=== PATIENT | male | born 1955 | race Caucasian/White ===

== ENCOUNTER 2017-08-21 05:25 | Inpatient (IN) ==
[2017-08-21] MEDS ORDERED: CEFAZOLIN 1 G INJECTION IVP ONE ×2 (05:29→05:47)
[2017-08-21 05:48] VITALS: BMI 25.8
[2017-08-21] MEDS ORDERED: FAMOTIDINE PB 20 MG/50 ML BAG IV ONE (06:00)
[2017-08-21] MEDS ORDERED: CELECOXIB 200 MG CAPSULE PO ONE (06:00)
[2017-08-21] MEDS ORDERED: METOCLOPRAMIDE 10mg/2ml INJECTION IVP ONE (06:00)
[2017-08-21] MEDS ORDERED: DEXAMETHASONE 4 MG/ML INJECTION IVP ONE (06:00)
[2017-08-21] MEDS ORDERED: ACETAMINOPHEN 500 MG TABLET PO ONE (06:00)
[2017-08-21] MEDS ORDERED: LIDOCAINE 1% (10mg/ml) 2mL INJ PF SDV ID ONE (06:00)
[2017-08-21] MEDS ORDERED: ONDANSETRON 4 MG/2 ML INJECTION IVP ONE (06:00)
[2017-08-21] MEDS ORDERED: TRANEXAMIC ACID 1,000 MG in NS 100 ML IV ONE ×2 (06:00→07:00)
[2017-08-21] MEDS: LR 1,000 ML IV SCH ×2 (06:05→08:23)
[2017-08-21] MEDS: NOZIN NASAL SWAB NAS SCH ×5 (06:08→21:31)
--- NOTE | 2017-08-21 06:43 | Anesthesia Preoperative Report ---
Anesthesia Preoperative Record - Date and Time Date: 08/21/17 Preoperative Diagnosis: Robotic Total Hip M16.12 Proposed Procedure: Left Total Hip NPO Since Date: 08/21/17 NPO Since Time: 00:00 Allergies/Adverse Reactions: Allergies Allergy/AdvReac Type Severity Reaction Status Date / Time No Known Allergies Allergy Verified 08/21/17 05:55 - Vital Signs Vital Signs: Temperature 98.5 F 08/21/17 05:45 Pulse Rate 75 08/21/17 05:55 Respiratory Rate 14 08/21/17 05:45 Blood Pressure 130/67 08/21/17 05:45 Pulse Oximetry 98 08/21/17 05:45 Height and Weight: Height 1.69 m Weight 73.8 kg Body Mass Index 25.8 - Medications Inpatient Medications: Current Medications Epinephrine HCl 0.25 mg/Bupivacaine HCl 30 ml/Ketorolac Tromethamine 60 mg/ Sodium Chloride 62.25 mls @ 0 mls/hr OPSITE INTRAOP ONE; Protocol Stop: 08/21/17 08:01 Tranexamic Acid 1,000 mg/ (Sodium Chloride) 110 mls @ 660 mls/hr IV INTRAOP ONE Stop: 08/21/17 07:09 Lactated Ringer's (Lactated Ringers) 1,000 mls @ 50 mls/hr IV .Q20H [facility] Last Admin: 08/21/17 06:05 Dose: 50 mls/hr Isopropyl Alcohol (Nozin Nasal Swab) 1 each JOSELITO Q1M SHINE Stop: 08/21/17 09:18 Last Admin: 08/21/17 06:17 Dose: 1 each Sodium Chloride (Iv Flush) 10 - 80 ml IV PRN PRN PRN Reason: [place] Home Medications: Home Medications Medication Instructions Recorded Confirmed Type Celebrex (Celecoxib) 200 mg capsule 200 mg PO DAILY 06/06/17 08/21/17 History omega-3 fatty acids 1,000 mg 1,000 mg PO DAILY 08/14/17 08/21/17 History capsule vitamin E 200 unit capsule 200 unit PO DAILY 08/14/17 08/21/17 History zinc 50 mg tablet 50 mg PO DAILY 08/14/17 08/21/17 History Is Patient on Beta Александр?: No - Medical History Respiratory: DENIES: Sleep Apnea Cardiovascular: Reports: Heart Murmur, Valvular Heart Disease (moderate mitral valve regurg.) - Surgical History GI Surgery/Treatments: Reports: Hernia Repair (inguinal hernia repair), Colonoscopy Anesthesia Reactions: None Hx Family Anesthesia Reaction: No History of Motion Sickness: No - Social History Smoking Status: Never smoker Hx Chewing Tobacco Use: No Second Hand Exposure: No Substance Use Type: does not use Alcohol Intake: never - Pertinent Findings EKG: Sinus Rhythm - Physical Exam Respiratory Exam: Present: lungs clear Cardiovascular Exam: Present: regular rate and rhythm - Airway Assessment Mallampati Score: II TMD: 3 Fingerbreadths Neck Extension: good Overall Assessment: no airway concerns - ASA ASA Score: 2 - Plan Anesthesia: Neuroaxial - Discussion Discussion: Discussed risks/options/alternatives of anesthesia and questions answered. Patient consents. Nursing pain assessment noted. Present for Discussion: spouse Attestation Statement: Prior to the delivery of any anesthetic medication, I examined the patient, developed the plan, obtained the patient's consent and discussed the risk and benefits of the procedure with the patient/guardian. - Additional Information Seen by Anesthesia: Yes
[2017-08-21] MEDS ORDERED: LIDOCAINE 2% (100mg/5mL) 5ml PF SDV ONE (07:03)
[2017-08-21] MEDS ORDERED: BUPIVACAINE 0.75%/DEXTROSE 8.5% SPINAL 2 ML AMPULE IJ ONE (07:03)
[2017-08-21] MEDS ORDERED: PROPOFOL 500 MG/50 ML VIAL ONE ×2 (07:04→08:13)
[2017-08-21] MEDS ORDERED: MIDAZOLAM 2mg/2ml INJECTION ONE (07:05)
[2017-08-21] MEDS ORDERED: EPINEPHrine PF 0.25 MG, BUPIVACAINE 0.25% PF 30 ML, KETOROLAC INJ 60 MG in NS 30 ML OPSITE ONE (08:00)
[2017-08-21] MEDS ORDERED: VANCOMYCIN 1,000 MG INJECTION IAR ONE (08:01)
[2017-08-21] MEDS ORDERED: VANCOMYCIN 1,000 MG INJECTION ONE (09:01)
[2017-08-21] MEDS ORDERED: SALINE FLUSH 10ml SYRINGE IV PRN (09:15)
--- NOTE | 2017-08-21 09:18 | Operative Note ---
- Procedure Preoperative Diagnosis: Left hip primary degenerative joint disease Postoperative Diagnosis: Same as preoperative diagnosis. Surgeon: Wenceslao Mak MD Senior Mechanical Estimator: Joselin Bermudez Complications: None. Anesthesia: Spinal. Estimated Blood Loss: See Anesthesia Record. Fluids: Please see Anesthesia Record. Description of Procedure: Mr. Lopes and his left hip were identified and marked in the preoperative holding area. He was brought back to the operating suite and spinal anesthetic was administered. He was then placed in a lateral decubitus position with his left hip up. The left lower extremity was prepped and draped in my normal sterile fashion. Timeout was performed. The [employer] robotic arm was used to assist with the surgery. A pelvic array was placed into the iliac crest through three small incisions. A direct superior approach was utilized. An approximately 10 cm incision was made in the skin and dissection carried down to the muscle fascia which was then split in line with skin incision. His motion was extremely limited and he had 0 of internal rotation. The short external rotators were identified and tagged and detached. A capsulotomy was performed and the hip dislocated. A femoral neck osteotomy was performed at the pre-templated level measuring down from the femoral head. The head was removed and acetabulum exposed. Labrum was removed. The acetabulum was then registered with the robot. The robotic arm was then used to ream with a 57 reamer. The robot then was again used to place a 58 Trident cup in 40 of tilt and 24 of anteversion. A liner was then placed. The proximal femur was exposed and prepared with a cookie cutter followed by reaming and broaching to a size 7. We trialed with a standard head. Length also checked with the robot and were good. He did impinged anteriorly with internal rotation to about 30 so anterior trochanter and anterior acetabular osteophytes were removed which allowed him to internally rotate to 45 without impinging at 90 of flexion. After thorough irrigation a final Accolade 2 size 7 stem with 127 neck was placed. Leg length and offset were checked with the robot and were good. A final 36 mm standard ceramic head was placed and the hip reduced. Betadine solution was used to irrigate throughout the case. It was followed by normal saline irrigation. Joint cocktail was injected throughout soft tissue. The capsulotomy was repaired with Ethibond. Short external rotators were also repaired with Ethibond. 1 g of vancomycin powder was placed into the wound. The muscle fascia was then repaired with #1 Vicryl. I then left my metallurgical laboratory assistant to close the subcutaneous tissue with 2-0 Vicryl followed by running 4-0 Monocryl skin followed by Dermabond and a sterile dressing. The patient with any placed back into supine position and taken to recovery room in the care of anesthesia.
[2017-08-21] MEDS ORDERED: PROPOFOL 20 ML ONE (09:20)
[2017-08-21] MEDS ORDERED: ONDANSETRON 4 MG/2 ML INJECTION IVP PRN ×2 (09:33→10:32)
[2017-08-21] MEDS ORDERED: HYDROMORPHONE 2 MG/ML INJECTION IVP PRN (09:33)
--- NOTE | 2017-08-21 09:55 | Anesthesia Postoperative Note ---
- Date and Time Date: 08/21/17 Time: 09:54 - Status Patient Participated in Evaluation: Patient Participated in Person Vital Signs: Temperature 98.5 F 08/21/17 05:45 Pulse Rate 75 08/21/17 05:55 Respiratory Rate 14 08/21/17 05:45 Blood Pressure 130/67 08/21/17 05:45 Pulse Oximetry 98 08/21/17 05:45 Respiratory Function: Airway Patent Cardiovascular Function: Regular Pulse EKG: Sinus Rhythm Mental Status: Alert and Oriented Pain Intensity: 0 Hydration: IV Infusing Complications During Recover: None Apparent - Follow-Up Instructions Instructions: Per Surgeon
--- NOTE | 2017-08-21 10:31 | XRay Report ---
Indication: postoperative image PROCEDURE: XR pelvis w/ 1 view LT hip: Encounter: Initial Comparison: June 06, 2017 Findings: Postoperative changes of left total hip replacement are seen. There is expected postoperative subcutaneous gas. No evidence of hardware failure or acute fracture. No retained radiopaque surgical instruments or sponges seen. Impression: New left total hip prosthesis without evidence of immediate complication. .
[2017-08-21] MEDS ORDERED: Oxycodone *IR* 5 MG TABLET PO PRN (10:32)
[2017-08-21] MEDS ORDERED: DiphenhydrAMINE 50 MG/ML INJECTION IVP PRN (10:32)
[2017-08-21] MEDS ORDERED: LORazepam 1 MG TABLET PO PRN (10:32)
[2017-08-21] MEDS ORDERED: DiphenhydrAMINE 25 MG CAPSULE PO PRN (10:32)
[2017-08-21] MEDS ORDERED: NOZIN NASAL SWAB NAS ONE (10:32)
[2017-08-21] MEDS: NS 1,000 ML IV SCH ×2 (10:41→23:18)
[2017-08-21] MEDS: ACETAMINOPHEN 325 MG TABLET PO SCH ×3 (12:59→21:31)
[2017-08-21] MEDS ORDERED: DEXAMETHASONE 20 MG/5 ML INJECTION IVP ONE (14:30)
[2017-08-21] MEDS: CEFAZOLIN 1 G in NS 100 ML IV SCH ×2 (14:55→23:18)
[2017-08-21] MEDS ORDERED: SENNOSIDES 8.6 MG TABLET PO SCH (21:00)
[2017-08-21] MEDS: DOCUSATE SODIUM 100 MG CAPSULE PO SCH (21:31)
[2017-08-21] MEDS: ASPIRIN *EC* 81 MG TABLET PO SCH (21:31)
[2017-08-22] MEDS: NOZIN NASAL SWAB NAS SCH ×2 (05:17→13:15)
--- NOTE | 2017-08-22 08:05 | Orthopedic Progress Note ---
Date: Date: 08/22/17 Time: 802 Subjective/Severity of Illness: Mr. Lopes is sitting up in the chair this morning working with OT. He has been up ambulating, pain has been well controlled with Tylenol and Aleve. He denies any CP, SOA, nausea. Tolerating PO well. Hgb 12.2 Orthopedic Exam Vital signs: Temperature 97.2 F 08/22/17 07:37 Pulse Rate 63 08/22/17 07:37 Respiratory Rate 12 08/22/17 07:37 Blood Pressure 118/62 08/22/17 07:37 Pulse Oximetry 100 08/22/17 07:37 - Constitutional General Appearance: Present: alert, orientated x3, cooperative, no acute distress - Respiratory Exam Present: CTA bilaterally, non-labored - Cardiovascular Exam Present: Regular Rate/Rhythm, pedal pulses intact, murmur - Abdominal Exam Present: soft, normoactive BS x4 - Extremities Exam Present: pulses intact. Absent: calf tenderness - Dressing Dressing: dry, intact, no drainage - Integumentary Exam Present: pink, warm, dry - Neurological Exam Present: intact to light touch, no deficits - Psychiatric Exam Present: alert, oriented - Labs Result Diagrams: 08/22/17 04:13 08/22/17 04:13 Abnormal lab results 08/22/17 08/22/17 Range/Units 04:13 04:13 Hgb 12.2 L (13.5-17.5) GM/DL Hct 35.7 L (41-53) % Chloride 110 H (98-107) MEQ/L BUN 26.0 H (9-20) MG/DL BUN/Creatinine Ratio 33 H (6-26) RATIO Glucose 118 H (75-110) MG/DL Calculated Osmolality 281 H (261-280) MOSM/KG H & H 08/22/17 Range/Units 04:13 Hgb 12.2 L (13.5-17.5) GM/DL Hct 35.7 L (41-53) % Orthopedic Assessment and Plan (1) Status post left hip replacement Status: Acute Assessment and Plan: Current anti-coagulation protocol with ASA 81mg BID for VTE prophylaxis. SCD's for added protection. PT/OT services to improve independent function. Discharge Planning per Case Management. - Anticoagulation Therapy Anticoagulation: ASA 81 mg PO BID x6 weeks - Additional Diagnoses Anemia: no intervention required, patient was asymptomatic, labs monitored Hospital Course Summary Disclaimer: The visit summary below is not to be considered part of the above Progress Note.
--- NOTE | 2017-08-22 08:07 | Discharge Summary ---
Letter to PCP Cover Letter: Frank Lopes underwent an elective total joint arthroplasty by Dr. Mak. Aspirin 81mg BID therapy was initiated for DVT prophylaxis. Aspirin should be given BID for six weeks postoperatively. Details for their hospitalization can be found in the discharge summary attached. The patient is scheduled to see you one week after surgery for a post-operative check. I hope you find the discharge summary informative and helpful as you resume care of your patient after their surgery. If our office can be of any assistance, please feel free to contact us any time. Orthopedic Discharge Info Date of admission: 08/21/17 05:25 Anticipated date of discharge: 08/22/17 Primary care physician: Augusto Ron MD Attending Physician: Augusto Mak MD Consults: 08/21/17 05:29 Consult to Anesthesiology [CONS] Routine Reason For Exam: Preoperative Assessment 08/21/17 10:32 Case Management Consult [CONS] Routine Reason For Exam: Discharge Planning DME-Walker [CONS] Routine Height: 5 ft 6.5 in Weight: 73.8 kg Total Joint Outpatient Therapy [CONS] Routine Comment: Remove dressing in 2 weeks - Discharge Diagnosis (1) Status post left hip replacement Status: Acute - Laboratory Result Diagrams: 08/22/17 04:13 08/22/17 04:13 Laboratory: Abnormal lab results 08/22/17 08/22/17 Range/Units 04:13 04:13 Hgb 12.2 L (13.5-17.5) GM/DL Hct 35.7 L (41-53) % Chloride 110 H (98-107) MEQ/L BUN 26.0 H (9-20) MG/DL BUN/Creatinine Ratio 33 H (6-26) RATIO Glucose 118 H (75-110) MG/DL Calculated Osmolality 281 H (261-280) MOSM/KG H & H 08/22/17 Range/Units 04:13 Hgb 12.2 L (13.5-17.5) GM/DL Hct 35.7 L (41-53) % Orthopedic Discharge HPI - HPI Comments This patient was admitted for elective surgical tx of end stage degenerative joint disease that failed to respond to conservative treatment. Further details of this is found in the admission H&P. Orthopedic Hospital Course Hospital course: 08/22/17 08:06 After appropriate preoperative clearance and signing of operative consent, the patient was given IV antibiotics, according to orthopedic protocol. The patient was taken to the operating room and underwent elective joint arthroplasty. Following surgery, antibiotics were discontinued less than 24 hours according to joint protocol. Appropriate anticoagulants were initiated and SCDs added for DVT prevention. The dressing was clean, dry, and intact. Pain control was obtained via multimodal approach. Bowel motivation addressed with scheduled and PRN medications. Early mobilization was initiated through PT services. Discharge arrangements made by a collaborative effort between the patient and Case Management. Anemia, hgb 12.2 post op day 1. No acute intervention required. Patient instructed to follow up with PCP 1 week after surgery for medical check and follow up of new diagnosis of MVP. PCP had mention referral to cardiology as well. Patient did well throughout the hospital stay. No symptoms of SOA, CP, palpitations. 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 Follow-up is scheduled in 2-3 weeks. Discharge instructions given by orthopedic providers and nursing staff at discharge. Discharge condition was good. 08/22/17 13:50 08/22/17 13:53 Care extended to > 2 midnight stays?: No Discharge Plan - Med Rec/Dispo Referrals/Follow Up: Joselin Bermudez APRN [Advanced Practice Nurse] - 09/12/17 2:00 pm Augusto Ron MD [Primary Care Provider] - 08/28/17 2:30 pm [facility] Instructions: [facility] Postop Instructions Additional Instructions: RADHA GAYLE ON 08/23/2017 AT 10:50AM FOR PHYSICAL THERAPY EVAL. PHONE Prescriptions: New Oxycodone *IR* [Roxicodone *Ir*] 5 - 10 mg PO Q3H PRN #50 tab PRN Reason: Breakthrough Pain Acetaminophen [Tylenol] 650 mg PO QID tab Aspirin *EC* [Ecotrin] 81 mg PO BID tab Docusate Sodium [Colace] 100 mg PO BID cap PEG 3350 17gm PACKET [Miralax] 17 gm PO DAILY packet Milk of Magnesia [Mom] 30 ml PO DAILY udc Continue vitamin E 200 unit capsule 200 unit PO DAILY zinc 50 mg tablet 50 mg PO DAILY Celebrex (Celecoxib) 200 mg capsule 200 mg PO DAILY omega-3 fatty acids 1,000 mg capsule 1,000 mg PO DAILY - Disposition 01 Discharged Home, Self-Care - Dismissal Complete Discharge Instructions are:: Incomplete
[2017-08-22] MEDS: ASPIRIN *EC* 81 MG TABLET PO SCH (08:21)
[2017-08-22] MEDS: ACETAMINOPHEN 325 MG TABLET PO SCH ×2 (08:22→13:15)
[2017-08-22] MEDS: DOCUSATE SODIUM 100 MG CAPSULE PO SCH (08:22)
[2017-08-22] MEDS ORDERED: CELECOXIB 200 MG CAPSULE PO SCH (09:00)
[2017-08-22] MEDS ORDERED: POLYETHYL GLYCOL 3350 17gm PACKET PO SCH (09:00)
[2017-08-22] MEDS ORDERED: SENNOSIDES 8.6 MG TABLET PO PRN (09:40)
[2017-08-22 11:53] VITALS: BP 104/59; PULSE 60; TEMP 97.1; O2SAT 100
[2017-08-22 13:15] VITALS: RESP 16
[2017-08-23] MEDS ORDERED: BISACODYL 10 MG SUPPOSITORY RECTALLY SCH (20:00)
== END 2017-08-22 13:45 | disposition home or self-care (01) | DRG 470 ==
LOC: NMC.PERIOP 05:25 → SRG 10:32
PROVIDERS: ADMIT Orthopaedic Surgery; ATTEND Orthopaedic Surgery